=== PATIENT | female | born 1945 | race Caucasian/White ===

== ENCOUNTER 2020-07-11 10:28 | Outpatient (REF) | payer MEDICARE, SELFPAY ==
[2020-07-11 15:16] LABS: SARS COV2 PCR INHOUSE NEGATIVE (Negative)
== END 2020-07-11 10:29 | disposition home or self-care (01) ==
LOC: HO.LAB 10:28
PROVIDERS: Visit Provider Internal Medicine
DX: Z20.822 Contact with and (suspected) exposure to COVID-19 (principal)
CPT/HCPCS: C9803; U0003

== ENCOUNTER 2020-07-15 12:06 | Outpatient (REF) | payer MEDICARE, SELFPAY ==
[2020-07-15 12:33] LABS: COVID-19 Test Negative (Negative)
== END 2020-07-15 12:07 | disposition home or self-care (01) ==
LOC: HO.LAB 12:06
PROVIDERS: Visit Provider Internal Medicine
DX: Z20.822 Contact with and (suspected) exposure to COVID-19 (principal)
CPT/HCPCS: 36415; 87635; C9803